=== PATIENT | female | born 1980 | race Two or more races ===

== ENCOUNTER 2016-07-24 17:05 | Emergency (ER) | payer MEDICAID ==
[2016-07-24 18:18] VITALS: BP 107/79; PULSE 98; RESP 16; TEMP 98.6; O2SAT 97
--- NOTE | 2016-07-24 19:05 | UCPHY ---
H & P Time Seen by Provider: 07/24/16 18:22 Patient Type: Established HPI/ROS: CHIEF COMPLAINT: Chronic pain, missed appointment HISTORY OF PRESENT ILLNESS: 35-year-old female with a history of a cervical disc herniation and chronic pain in the right side of her neck, extending onto her right shoulder and into her right upper extremity presents reporting ongoing pain with pain extending into the base of the head on the right and a right-sided headache for the last 2 days. Patient was unable to keep an appointment with her primary pain medication physician this past week as she was incarcerated. She often received injections in the cervical spine to treat her pain. She has had no new injuries or head trauma. Her discomfort is similar to her chronic pain. Last time she took a narcotic pain medication was noon yesterday. She also reports brief, less than a minute in duration, feelings of spinning and dizzy. No chest pain or shortness of breath. No palpitations. No racing heart. No syncope. No fever, chills, chest pain, shortness of breath, palpitations, vomiting, diarrhea, urinary complaints. REVIEW OF SYSTEMS: Aside from elements discussed in the HPI, a comprehensive 10-point review of systems was reviewed and is negative. PAST MEDICAL HISTORY: chronic pain. Lupus. Stage 4 kidney disease. SOCIAL HISTORY: Occasional smoker. VITAL SIGNS: see nurse's notes. GENERAL: Well-developed, well-nourished, complaining of pain on the right side of her neck, across her right shoulder, and into the right posterior neck with a right-sided headache. HEENT: Normal, atraumatic. Pupils equal round reactive, no nystagmus. Extraocular movements intact. No midline cervical spine tenderness to palpation. Reports pain in the right trapezius musculature with no tenderness. Neck: supple, FROM. LUNGS: Clear to auscultation bilaterally, no wheezes, rhonchi or rales. CARDIAC: Regular rate and rhythm, no rubs, murmurs or gallops. ABDOMEN: Soft, nontender, nondistended, bowel sounds normal. BACK: No CVA tenderness. No vertebral tenderness. EXTREMITIES: Good range of motion at the right shoulder. No edema, FROM. NEURO: Alert and oriented, grossly nonfocal. SKIN: Warm and dry, no rash. Smoking Status: Light smoker Constitutional: Initial Vital Signs Temperature (C) 37.0 C 07/24/16 17:40 Heart Rate 98 07/24/16 17:40 Respiratory Rate 16 07/24/16 17:40 Blood Pressure 107/79 07/24/16 17:40 O2 Sat (%) 97 07/24/16 17:40 O2 Delivery Mode Room Air Allergies/Adverse Reactions: NSAIDS (Non-Steroidal Anti-Inflamma [Nsaids] Allergy (Intermediate, Verified 18:08) Abdominal Pain ondansetron HCl [From Zofran] Allergy (Intermediate, Verified 07/24/16 18:08) Penicillins Allergy (Intermediate, Verified 07/24/16 18:08) Swelling/neck,face,throat morphine Allergy (Verified 07/24/16 18:08) NOVACAINE Allergy (Intermediate, Uncoded 07/24/16 18:08) Hives Home Medications: Medication Instructions Recorded BUPROPION HCL [Bupropion Xl] 100 mg PO BID 09/21/10 GABAPENTIN 12/16/14 Oxycodone HCl 10 12/16/14 oxyCODONE HCL/ACETAMINOPHEN 1 each PO HS #10 tablet 01/30/16 [Oxycodon-Acetaminophen 2.5-325] Fioricet-Cod 46-69-826-40 Cap 07/24/16 Hydroxychloroquine Sulfate 07/24/16 Oxybutynin Chloride 07/24/16 Oxycodone HCl/Acetaminophen 1 each PO Q6 PRN #16 tablet 07/24/16 [Oxycodone-Acetaminophen 10-325] Prazosin HCl 07/24/16 Restasis Opht Drops(*) 07/24/16 Venlafaxine HCl 07/24/16 MDM/Departure - MDM Medications Given: Discontinued Medications Oxycodone/Acetaminophen (Percocet 5/325mg Prepack#4) 1 btl TAKEHOME EDNOW ONE Stop: 07/24/16 19:26 Last Admin: 07/24/16 19:30 Dose: 1 btl ED Course/Re-evaluation: Patient's course discussed with her pain management physician, Dr. Conrad Diallo. Dr. Diallo will be able to see her on Tuesday. He asked that the patient be provided with a short course prescription for oxycodone until she can be seen. Differential Diagnosis: Differential diagnoses for the patient's symptom complex was considered including but not limited to chronic pain, early depletion of pain medications, narcotic abuse, cervical disc disease, vertigo, narcotic withdrawal. - Depart Disposition: Home, Routine, Self-Care Clinical Impression: Medication refill Chronic pain Qualifiers: Chronic pain type: other chronic pain Qualified Code(s): G89.29 - Other chronic pain Condition: Good Instructions: Oxycodone/Acetaminophen (By mouth) Additional Instructions: I discussed your urgent care visit with Dr. Diallo. You been provided with a prescription for oxycodone 10 mg/325 tablets #16. You need to follow up with Dr. Diallo on Tuesday via phone at a minimum. No further narcotic medications refills will be provided from Urgent Care or [facility]. Prescriptions: Oxycodone HCl/Acetaminophen [Oxycodone-Acetaminophen 10-325] 1 each PO Q6 PRN # 16 tablet PRN Reason: Pain, Breakthrough Referrals: MARLEN FIGUEROA,Sinan [Primary Care Provider] - As per Instructions - PQRS PQRS Measurement: Not applicable
[2016-07-24] MEDS ORDERED: OXYCODONE/APAP 5/325MG PREPACK#4 BTL TAKEHOME ONE (19:25)
== END 2016-07-24 19:30 | disposition home or self-care (01) ==
LOC: CED 17:05
DX: G89.29 Other chronic pain (principal); M25.511 Pain in right shoulder; R51 Headache; Z72.0 Tobacco use; L93.2 Other local lupus erythematosus; N18.4 Chronic kidney disease, stage 4 (severe)
CPT/HCPCS: 99214-PO; G0463-PO

== ENCOUNTER 2016-10-30 20:12 | Emergency (ER) | payer MEDICAID ==
--- NOTE | 2016-10-30 20:52 | EDPHY ---
H & P Stated Complaint: low back pain, weakness/numbness in legs - chronic, plus new groin pain - Personal History LMP (Females 10-55): Hysterectomy Current Tetanus/Diphtheria Vaccine: Yes - Medical/Surgical History Hx Asthma: No Hx Chronic Respiratory Disease: No Hx Diabetes: No Hx Cardiac Disease: No Hx Renal Disease: Yes Hx Cirrhosis: No Hx Alcoholism: No Hx HIV/AIDS: No Hx Splenectomy or Spleen Trauma: No Other PMH: PMHx: Lupus, Migraines, Fibromyalgia, rheumatoid arthritis, depression, anxiety, stage IV kidney disease. PSHx: Gallbladder, Appendectomy, Hysterectomy and oophorectomy. - Social History Smoking Status: Light smoker HPI/ROS: Chief complaint: Low back pain History of present illness: 36-year-old female presents to the emergency department for evaluation of low back pain. Patient reports she has had low back pain for a number of months. However yesterday she states she was moving around a lot and is concerned she exacerbated the pain. She reports dramatic increase in the low back pain. Pain radiates down into the buttocks and into the back of the legs. She has associated numbness in the legs. She states she is now having trouble walking on occasion and has had urinary incontinence. She denies other potential precipitating factors including no direct trauma. She denies other associated signs or symptoms including no fevers, no paralysis , no bowel dysfunction. Review of systems: A 10 point review of systems was obtained and other than described above was negative (Ethan Lott) - Social History Additional Social History: Denies IV drug use (Ethan Lott) - Physical Exam Exam: General Appearance: Alert, nontoxic. Eyes: Pupils equal and round no pallor or injection. ENT, Mouth: Mucous membranes moist. Respiratory: There are no retractions, lungs are clear to auscultation. Cardiovascular: Regular rate and rhythm. Gastrointestinal: Abdomen is soft and nontender, no masses, bowel sounds normal. Neurological: Alert and oriented x4. Strength and sensation intact and symmetrical. Straight leg raise test is negative bilaterally. Skin: Warm and dry, no rashes. Musculoskeletal: Neck is supple nontender. The cervical and thoracic spine are nontender. Diffuse tenderness over the lumbar spine and paraspinal muscles bilaterally to light palpation. No crepitus, bony deformity or step-off. Extremities are symmetrical, full range of motion. I have seen patient ambulate well in the emergency room. Psychiatric: Patient is oriented X 3, there is no agitation. (Ethan Lott) Constitutional: Initial Vital Signs Temperature (C) 36.9 C 10/30/16 20:14 Heart Rate 76 10/30/16 20:14 Respiratory Rate 14 10/30/16 20:14 Blood Pressure 113/80 10/30/16 20:14 O2 Sat (%) 96 10/30/16 20:14 O2 Delivery Mode Room Air Allergies/Adverse Reactions: NSAIDS (Non-Steroidal Anti-Inflamma [Nsaids] Allergy (Intermediate, Verified 18:08) Abdominal Pain ondansetron HCl [From Zofran] Allergy (Intermediate, Verified 07/24/16 18:08) Penicillins Allergy (Intermediate, Verified 07/24/16 18:08) Swelling/neck,face,throat morphine Allergy (Verified 07/24/16 18:08) NOVACAINE Allergy (Intermediate, Uncoded 07/24/16 18:08) Hives Home Medications: Medication Instructions Recorded BUPROPION HCL [Bupropion Xl] 100 mg PO BID 09/21/10 GABAPENTIN 12/16/14 Oxycodone HCl 10 12/16/14 oxyCODONE HCL/ACETAMINOPHEN 1 each PO HS #10 tablet 01/30/16 [Oxycodon-Acetaminophen 2.5-325] Fioricet-Cod 22-19-826-40 Cap 07/24/16 Hydroxychloroquine Sulfate 07/24/16 Oxybutynin Chloride 07/24/16 Oxycodone HCl/Acetaminophen 1 each PO Q6 PRN #16 tablet 07/24/16 [Oxycodone-Acetaminophen 10-325] Prazosin HCl 07/24/16 Restasis Opht Drops(*) 07/24/16 Venlafaxine HCl 07/24/16 Medical Decision Making - Diagnostics Imaging Results: Imaging Impressions Lumbar Spine MRI 10/30/16 20:35 Impression: 1. No visible etiology for the patient's incontinence. 2. L4-L5: Focal central disk protrusion causing moderate spinal canal narrowing , contacting the right L5 nerve root without definite evidence of compression, with mild left and minimal right neural foraminal stenosis. 3. Additional findings as above. Findings discussed with VEDA Moreau 10/30/2016 at 23:11. Abdomen/Pelvis CT 10/30/16 23:34 Impression: 1. No acute findings. 2. Coronary artery atherosclerosis. 3. Constipation. 4. Additional findings as above. Findings discussed with VEDA Moreau 10/30/2016 at 23:53. Attention: This CT examination is specifically designed to evaluate patients who are clinically suspected of having acute obstructive uropathy. This examination does not use radiographic contrast, and as such, provides only a limited evaluation of the abdomen, pelvis and retroperitoneum. If there is further clinical suspicion for pathological conditions other than obstructive uropathy, a complete CT evaluation of the abdomen and pelvis utilizing intravenous and oral contrast should be considered. ED Course/Re-evaluation: The patient was evaluated and managed by the physician's assistant dean. My cosignature indicates that I reviewed the chart and I agree with the findings and plan of care as documented. I am the secondary supervising physician. ( Samantha Arango) Patient is discussed with my secondary supervising physician Dr. Samantha Arango. Patient presents to the emergency department with chronic low back pain that is worsening and now complaining of associated neurologic symptoms. On my evaluation she is nontoxic. She is afebrile and vital signs are stable. Physical exam is benign including a nonfocal neurologic exam. Blood studies unremarkable. Urinalysis concerning for hematuria, patient has had a hysterectomy so no menstrual cycle. Lumbar spine MRI is pursued. Patient reports a history of severe kidney disease and therefore it is performed without contrast. No acute findings are noted. Given pain and hematuria CT scan is further pursued to ensure no other pathology. This is also negative. I do not appreciate severe pathology at this time. Patient has been very focused on getting pain medications. I have offered her multiple alternatives to opioids but any time I offer something she states she has already tried it. Ultimately she has agreed to a lidocaine patch which gave her some relief. Patient is discharged home. She is asked to follow up with her primary care doctor for recheck. Return precautions are given. (Ethan Lott) Differential Diagnosis: Included but not limited to lumbar strain or sprain, bony fracture, herniated intervertebral disc, cauda equina syndrome, urinary tract disease (Ethan Lott) - Data Points Laboratory Results: Laboratory Results 10/30/16 20:40 10/30/16 22:00 10/30/16 10/30/16 10/30/16 22:00 21:10 20:40 WBC RBC Hgb Hct MCV MCH MCHC RDW Plt Count MPV Neut % (Auto) Lymph % (Auto) [place] % (Auto) Eos % (Auto) Baso % (Auto) Nucleat RBC Rel Count Absolute Neuts (auto) Absolute Lymphs (auto) Absolute Monos (auto) Absolute Eos (auto) Absolute Basos (auto) Absolute Nucleated RBC Immature Gran % Immature Gran # Sodium 143 mEq/L mEq/L (134-144) Potassium 4.1 mEq/L mEq/L (3.5-5.2) Chloride 111 mEq/L H mEq/L (97-110) Carbon Dioxide 26 mEq/l mEq/l (22-31) Anion Gap 6 mEq/L L mEq/L (8-16) BUN 8 mg/dL mg/dL (7-23) Creatinine 0.7 mg/dL mg/dL (0.6-1.0) Estimated GFR > 60 Glucose 83 mg/dL mg/dL (70-100) Calcium 8.7 mg/dL mg/dL (8.5-10.4) Beta HCG, Qual NEGATIVE Urine Color PALE YELLOW Urine Appearance CLEAR Urine pH 6.0 (5.0-7.5) Ur Specific [place] 1.003 (1.002-1.030) Urine Protein NEGATIVE (NEGATIVE) Urine Ketones NEGATIVE (NEGATIVE) Urine Blood 2+ H (NEGATIVE) Urine Nitrate NEGATIVE (NEGATIVE) Urine Bilirubin NEGATIVE (NEGATIVE) Urine Urobilinogen NEGATIVE EU EU (0.2-1.0) Ur Leukocyte Esterase NEGATIVE (NEGATIVE) Urine RBC 3-5 /hpf H /hpf (0-3) Urine WBC 1-3 /hpf /hpf (0-3) Ur Epithelial Cells TRACE /lpf /lpf (NONE-1+) Urine Glucose NEGATIVE (NEGATIVE) 10/30/16 20:40 WBC 5.85 10^3/uL 10^3/uL (3.80-9.50) RBC 4.38 10^6/uL 10^6/uL (4.18-5.33) Hgb 12.7 g/dL g/dL (12.6-16.3) Hct 39.6 % % (38.0-47.0) MCV 90.4 fL fL (81.5-99.8) MCH 29.0 pg pg (27.9-34.1) MCHC 32.1 g/dL L g/dL (32.4-36.7) RDW 14.1 % % (11.5-15.2) Plt Count 206 10^3/uL 10^3/uL (150-400) MPV 9.9 fL fL (8.7-11.7) Neut % (Auto) 60.9 % % (39.3-74.2) Lymph % (Auto) 30.3 % % (15.0-45.0) [place] % (Auto) 7.0 % % (4.5-13.0) Eos % (Auto) 1.0 % % (0.6-7.6) Baso % (Auto) 0.3 % % (0.3-1.7) Nucleat RBC Rel Count 0.0 % % (0.0-0.2) Absolute Neuts (auto) 3.56 10^3/uL 10^3/uL (1.70-6.50) Absolute Lymphs (auto) 1.77 10^3/uL 10^3/uL (1.00-3.00) Absolute Monos (auto) 0.41 10^3/uL 10^3/uL (0.30-0.80) Absolute Eos (auto) 0.06 10^3/uL 10^3/uL (0.03-0.40) Absolute Basos (auto) 0.02 10^3/uL 10^3/uL (0.02-0.10) Absolute Nucleated RBC 0.00 10^3/uL 10^3/uL (0-0.01) Immature Gran % 0.5 % % (0.0-1.1) Immature Gran # 0.03 10^3/uL 10^3/uL (0.00-0.10) Sodium Potassium Chloride Carbon Dioxide Anion Gap BUN Creatinine Estimated GFR Glucose Calcium Beta HCG, Qual Urine Color Urine Appearance Urine pH Ur Specific [place] Urine Protein Urine Ketones Urine Blood Urine Nitrate Urine Bilirubin Urine Urobilinogen Ur Leukocyte Esterase Urine RBC Urine WBC Ur Epithelial Cells Urine Glucose Medications Given: Discontinued Medications Lidocaine (Lidoderm 5%) 1 ea TD EDNOW ONE Stop: 10/30/16 23:35 Last Admin: 10/30/16 23:43 Dose: 1 ea Miscellaneous Information (Patch Removal) 1 ea TD [id number] ZOHRA Stop: 04/29/17 20:59 Last Admin: 10/30/16 23:50 Dose: 1 ea Departure - Departure Disposition: Home, Routine, Self-Care Clinical Impression: Hematuria Back pain Qualifiers: Back pain location: low back pain Chronicity: acute Back pain laterality: bilateral Sciatica presence: with sciatica Sciatica laterality: bilateral sciatica Qualified Code(s): M54.42 - Lumbago with sciatica, left side; M54.41 - Lumbago with sciatica, right side Condition: Good Instructions: Hematuria (ED), Acute Low Back Pain (ED) Additional Instructions: Follow-up with your primary care doctor this week for recheck If symptoms worsen or new symptoms develop return to the emergency room for recheck Referrals: FRED BLACKBURN [Other] - As per Instructions
[2016-10-30 21:03] LABS: % IMMATURE GRANULYOCYTES 0.5 % (0.0-1.1); ABSOLUTE IMMATURE GRANULOCYTES 0.03 10^3/uL (0.00-0.10); ADD DIFF? NO; ADD MORPH? NO; ADD SCAN? NO; ATYPICAL LYMPHOCYTE FLAG 50 (0-99); FRAGMENT RBC FLAG 0 (0-99); HEMATOCRIT 39.6 % (38.0-47.0); HEMOGLOBIN 12.7 g/dL (12.6-16.3); LEFT SHIFT FLG 0 (0-99); LIPEMIA HEMOLYSIS FLAG 80 (0-99); MEAN CELL HEMOGLOBIN CONCENTR. 32.1 g/dL (32.4-36.7); MEAN CELL VOLUME 90.4 fL (81.5-99.8); MEAN PLATELET VOLUME 9.9 fL (8.7-11.7); PLATELET CLUMPS FLAG 50 (0-99); PLATELET COUNT 206 10^3/uL (150-400); RED BLOOD CELL COUNT 4.38 10^6/uL (4.18-5.33); RED CELL DISTRIBUTION WIDTH 14.1 % (11.5-15.2)
[2016-10-30 21:48] LABS: COLOR PALE YELLOW; LEUKOCYTE ESTERASE,URINE NEGATIVE (NEGATIVE); NITRITE,URINE NEGATIVE (NEGATIVE)
[2016-10-30 22:23] LABS: ANION GAP 6 mEq/L (8-16); CALCIUM 8.7 mg/dL (8.5-10.4); CARBON DIOXIDE 26 mEq/l (22-31); CHLORIDE 111 mEq/L (97-110); CREATININE 0.7 mg/dL (0.6-1.0); GLOMERULAR FILTRATION RATE > 60; GLUCOSE 83 mg/dL (70-100); POTASSIUM 4.1 mEq/L (3.5-5.2); SODIUM 143 mEq/L (134-144)
[2016-10-30] MEDS ORDERED: LIDOCAINE 5% 1 EA PATCH TD ONE ×2 (23:34→23:35)
[2016-10-31 00:16] VITALS: BP 105/69; PULSE 69; RESP 16; TEMP 98.1; O2SAT 95
[2016-10-31] MEDS ORDERED: PATCH REMOVAL 1 EA PATCH TD SCH (21:00)
== END 2016-10-31 00:15 | disposition home or self-care (01) ==
DX: M54.42 Lumbago with sciatica, left side (principal); M54.41 Lumbago with sciatica, right side; R31.9 Hematuria, unspecified; F17.200 Nicotine dependence, unspecified, uncomplicated

== ENCOUNTER → 2017-07-01 | Day surgery (SDC) | payer MEDICAID ==
[~2017-07-01] MED LIST: BUPIVACAINE 0.25% 30 ML SDV ONE; BUPIVACAINE/DEXTROSE 7.5MG/ML 2 ML SPINAL AMP SP ONE; DEPO METHYLPREDNISOLONE 40 MG/ML SDV ONE; DEPO METHYLPREDNISOLONE 80 MG/ML SDV ONE; LIDO/EPI 1% **for epidural** 30 ML SDV ONE; LIDOCAINE 1% 300 MG/30 ML SDV ONE
== END | disposition home or self-care (01) ==
LOC: FIMAGING 08:15
PROVIDERS: ATTEND Radiology Diagnostic Radiology
PROC: 3E0S3BZ Introduction of Anesthetic Agent into Epidural Space, Percutaneous Approach (ICD-10-PCS; principal; 2017-07-01)
PROC: 3E0S33Z Introduction of Anti-inflammatory into Epidural Space, Percutaneous Approach (ICD-10-PCS; principal; 2017-07-01)
PROC: BR2D1ZZ Computerized Tomography (CT Scan) of Sacroiliac Joints using Low Osmolar Contrast (ICD-10-PCS; principal; 2017-07-01)
DX: M53.3 Sacrococcygeal disorders, not elsewhere classified (principal)
CPT/HCPCS: J1030; J1040